=== PATIENT | female | born 1950 | race Caucasian/White ===

== ENCOUNTER 2018-04-09 10:09 | Inpatient (IN) | payer OTHER ==
[~2018-04-09] VITALS: Ht 165.1 cm; Wt 106.9 kg
[~2018-04-09 10:09] MED LIST: NEXIUM PO; NORCO 325 MG-51 TAB PO; TOPROL XL 50MG50 MG PO
[2018-05-20] VITALS (14 sets, daily range): BP systolic 108–164; BP diastolic 26–69; PULSE 50–62; TEMP 97.5–98.4
[2018-05-20] MEDS ORDERED: MOTRIN 800800 MG/TAB PO (05:17)
[2018-05-20] MEDS ORDERED: CELEBREX 200MG200 MG PO ×2 (05:18→06:22)
[2018-05-20] MEDS ORDERED: ADIPEX-P37.5 MG PO (05:18)
[2018-05-20] MEDS ORDERED: PRIL40 PO (05:18)
[2018-05-20 05:53] LABS: COLLECTION METHOD CATHETER
[2018-05-20 05:59] LABS: PH 6 (5-8); SQUAMOUS EPITHELIAL 0-2 /hpf; URINE APPEARANCE Clear; URINE BACTERIA None Seen /hpf; URINE BILIRUBIN Negative (NEGATIVE); URINE BLOOD Negative (NEGATIVE); URINE COLOR Yellow; URINE GLUCOSE Negative (NEGATIVE); URINE KETONE Negative (NEGATIVE); URINE LEUKOCYTE ESTERASE Negative (NEGATIVE); URINE NITRATE Negative (NEGATIVE); URINE PROTEIN(semi-quant) Negative (NEGATIVE); URINE RBC 0-2 /hpf; URINE UROBILINOGEN Negative (NEGATIVE)
[2018-05-20 06:13] LABS: MUCOUS Present /lpf
[2018-05-20] MEDS ORDERED: ASPI325T6 PO (06:22)
[2018-05-20] MEDS ORDERED: ULTRAM 50MG TAB50 MG PO (06:23)
[2018-05-20] MEDS ORDERED: NORCO 325 MG-7.1 TAB PO (06:23)
[2018-05-21 03:26] VITALS: BP 109/61; PULSE 70; TEMP 98
[2018-05-21 07:18] LABS: HEMOGLOBIN 10.6 g/dl (12.5-16.0)
[2018-05-21 07:20] LABS: HEMATOCRIT 32.4 % (37.0-47.0)
[2018-05-21 08:09] VITALS: BP 110/39; PULSE 59; TEMP 98.5
== END 2018-05-21 12:35 | disposition home or self-care (01) | DRG 470 ==
LOC: JCC 05-20 05:12
PROVIDERS: Orthopaedic Surgery; Physician Assistant
PROC: 0SRD0J9 Replacement of Left Knee Joint with Synthetic Substitute, Cemented, Open Approach (ICD-10-PCS; principal; 2018-05-20 07:30)
DX: M17.12 Unilateral primary osteoarthritis, left knee (principal); I10 Essential (primary) hypertension; J45.909 Unspecified asthma, uncomplicated; Z85.030 Personal history of malignant carcinoid tumor of large intestine
CPT/HCPCS: A9284; C1713; C1776; J0690; J1885; J2250; J2270; J2405; J2704; J3010; J7120; J7121

== ENCOUNTER → 2018-04-22 | Outpatient (CLI) | payer OTHER ==
[~2018-04-22] MED LIST changes: -TOPROL XL 50MG50 MG PO; +TOPROL XL50 MG PO
== END ==
LOC: COL.RAD 07:51
DX: Z01.812 Encounter for preprocedural laboratory examination (principal); Z86.79 Personal history of other diseases of the circulatory system

== ENCOUNTER 2018-05-21 23:15 | Emergency (ER) | payer OTHER ==
[~2018-05-21] VITALS: Ht 165.1 cm; Wt 106.8 kg
[~2018-05-21 23:15] MED LIST changes: +ADIPEX-P37.5 MG PO; +ASPI325T6 PO; +CELEBREX 200MG200 MG PO; +MOTRIN 800800 MG/TAB PO; +NORCO 325 MG-7.1 TAB PO; +PRIL40 PO; +TOPROL XL 50MG50 MG PO; -TOPROL XL50 MG PO; +ULTRAM 50MG TAB50 MG PO
[2018-05-21 23:29] VITALS: TEMP 99.1
[2018-05-22 00:27] LABS: BASO % 0.1 % (0.0-2.0); EOS # 0.2 (0.0-0.7); EOS % 2.2 % (0-4.0); GRAN % 80.4 % (42.2-75.2); HEMOGLOBIN 10.5 g/dl (12.5-16.0); LYMPH % 9.9 % (20.0-51.0); MEAN CELL VOLUME 86 fl (80.0-100.0); MEAN CORPUSCULAR HEMOGLOBIN 29 pg (27.0-31.0); MEAN CORPUSCULAR HGB CONC 34 g/dl (33.0-37.0); MEAN PLATELET VOLUME 9.9 fl (7.4-10.4); MONO # 0.7 (0.1-0.6); MONO % 7.1 % (1.7-9.3); PLATELET COUNT 188 K/mm3 (130-400); RED BLOOD COUNT 3.57 M/mm3 (4.10-5.30); REDCELL DISTRIBUTION WIDTH-CV 12.8 % (11.5-14.5)
[2018-05-22 00:28] LABS: HEMATOCRIT 30.8 % (37.0-47.0)
[2018-05-22 00:38] LABS: CALCIUM 8.5 mg/dL (8.4-10.2); CREATININE, serum 0.53 mg/dL (0.52-1.25); POTASSIUM 4.2 mmol/L (3.4-5.0)
[2018-05-22 00:46] LABS: COLLECTION METHOD CLEAN CATCH
[2018-05-22 01:17] LABS: MUCOUS Present /lpf; PH 5 (5-8); URINE APPEARANCE Clear; URINE BACTERIA None Seen /hpf; URINE BILIRUBIN Negative (NEGATIVE); URINE BLOOD Negative (NEGATIVE); URINE COLOR Yellow; URINE GLUCOSE Negative (NEGATIVE); URINE KETONE 1+ (NEGATIVE); URINE LEUKOCYTE ESTERASE Negative (NEGATIVE); URINE NITRATE Negative (NEGATIVE); URINE PROTEIN(semi-quant) Negative (NEGATIVE); URINE UROBILINOGEN Negative (NEGATIVE)
[2018-05-22 01:30] VITALS: BP 120/49; PULSE 72
== END 2018-05-22 01:30 | disposition home or self-care (01) ==
LOC: COL.ER 23:15
PROVIDERS: Physician Assistant
DX: R60.9 Edema, unspecified (principal); M25.562 Pain in left knee; G89.28 Other chronic postprocedural pain; Z96.652 Presence of left artificial knee joint; Z79.82 Long term (current) use of aspirin

== ENCOUNTER → 2018-05-26 | Outpatient (CLI) | payer OTHER | LOC: COL.VAS 08:00 | DX: I82.432 Acute embolism and thrombosis of left popliteal vein (principal); I82.442 Acute embolism and thrombosis of left tibial vein; R07.1 Chest pain on breathing; Z96.652 Presence of left artificial knee joint ==

== ENCOUNTER → 2018-08-18 | Outpatient (CLI) | payer OTHER | LOC: COL.VAS 10:51 | DX: Z13.6 Encounter for screening for cardiovascular disorders (principal); I82.432 Acute embolism and thrombosis of left popliteal vein ==

== ENCOUNTER → 2019-05-03 | Outpatient (CLI) | payer OTHER | LOC: COL.VAS 11:35 | DX: Z86.718 Personal history of other venous thrombosis and embolism (principal) ==

== ENCOUNTER → 2020-01-20 | Outpatient (CLI) | payer OTHER | LOC: COL.RAD 10:05 | DX: M65.812 Other synovitis and tenosynovitis, left shoulder (principal); M75.52 Bursitis of left shoulder; M67.814 Other specified disorders of tendon, left shoulder ==

== ENCOUNTER → 2021-05-01 | Outpatient (CLI) | payer OTHER | LOC: COL.VAS 09:30 | DX: M79.661 Pain in right lower leg (principal) ==